=== PATIENT | female | born 1970 | race Caucasian/White ===

== ENCOUNTER → 2022-01-04 | Outpatient (CLI) | payer BC ==
[~2022-01-04] MED LIST: DETROL LA4 MG PO; INDERAL40 MG PO; LORTAB 5/500 501 TAB PO; PYRIDIUM 100MG100 MG PO; TOPAMAX50 MG PO; ULTRAM 50MG TAB50 MG PO; ZOFRAN 4MG T4 MG/TAB PO
[2022-01-05 04:27] LABS: TESTOSTERONE <13 ng/dL (13-36)
[2022-01-05 05:00] LABS: ESTRADIOL <10 pg/mL (()); FOLLICLE STIMULATING HORMONE 49.6 mIU/mL (()); PROGESTERONE 0.2 ng/mL (())
== END ==
LOC: LAB 14:20
PROVIDERS: Emergency Medicine
DX: E34.9 Endocrine disorder, unspecified (principal); E07.9 Disorder of thyroid, unspecified; R79.9 Abnormal finding of blood chemistry, unspecified